=== PATIENT | male | born 1965 | race Caucasian/White ===

== ENCOUNTER 2017-12-28 11:25 | Outpatient (CLI) | payer BC ==
--- NOTE | 2017-12-28 12:09 | RAD ---
RIGHT KNEE 4 VIEWS: HISTORY: A 52-year-old male with a history of right knee pain for 2 weeks. FINDINGS: Minimal tricompartment degenerative changes. No fracture, dislocation, or other acute process. IMPRESSION: Unremarkable right knee. POS: [facility]IA R
== END 2017-12-28 11:26 | disposition home or self-care (01) ==
LOC: SCSRAD 11:25
PROVIDERS: ATTEND Specialist
DX: M25.561 Pain in right knee (principal)